=== PATIENT | male | born 1970 | race Caucasian/White ===

== ENCOUNTER → 2020-08-05 | Outpatient (CLI) | payer OTHER ==
[~2020-08-05] MED LIST: IBUPROFEN 800800 M1 PO; NOHOMEMEDICATIONS; NORCO 5-325 TA1 EACH PO; PERCOCET 5-3251 EACH PO; TAMSULOSIN HCL0.4 M1 PO; ZOFRAN 4 MG ORAL4 MG PO; [UNRECOGNIZED DRUG - REMARK]
== END ==
LOC: M.ULTRA 04-28 08:30
PROVIDERS: ATTEND Family Medicine
DX: K76.89 Other specified diseases of liver (principal); R31.9 Hematuria, unspecified